=== PATIENT | male | born 1990 | race Caucasian/White ===

== ENCOUNTER 2025-04-20 09:23 | Outpatient (CLI) | payer BC ==
[2025-04-20] MEDS ORDERED: Iopamidol 300 61% 100 ML VIAL FS ONE (12:46)
== END 2025-04-20 09:24 | disposition home or self-care (01) ==
LOC: CSHCT 09:23
PROVIDERS: ATTEND Surgery
DX: R59.0 Localized enlarged lymph nodes (principal); L98.8 Other specified disorders of the skin and subcutaneous tissue
CPT/HCPCS: 72193; Q9967